=== PATIENT | male | born 1955 | race African-American/Black ===

== ENCOUNTER 2019-12-04 20:56 | Inpatient (IN) | payer MEDICARE, MEDICAID ==
[~2019-12-04] VITALS: Ht 182.9 cm; Wt 102.1 kg
[~2019-12-04 20:56] MED LIST: AMLO10TA80 MT; AZIT500T8 MT; CITR30SO2 PO; COR6 PO; FERR325T23 MT; FURO-152 MT; GABA-531 MT; INSU100I24 SQ; SITA1TAB6 MT
[2019-12-05] MEDS ORDERED: VANCOMYCIN 1 G PREMIX 200 ML IV ONE (01:00)
[2019-12-05] MEDS ORDERED: PIPERACILLIN/TAZ 3.375G PREMIX 50 ML IV ONE (01:00)
[2019-12-05 02:03] LABS: CHLORIDE 108 mEq/L (98-107)
[2019-12-05 02:06] LABS: BASOPHILS % 0.8 % (0.0-2.0); EOSINOPHILS % 0.1 % (0.0-5.0); HEMATOCRIT. 30.4 % (42.0-52.0); HEMOGLOBIN. 9.5 g/dL (14.0-18.0); MEAN CORPUSCULAR HEMOGLOBIN 23.3 pg (28.0-32.0); MEAN CORPUSCULAR VOLUME 74.3 fL (80.0-94.0); MEAN PLATELET VOLUME 8.7 fl (7.4-10.4); MONOCYTES % 4.9 % (2.0-8.0); NEUTROPHILS % 83.2 % (40.0-76.0); PLATELET 413 x1000/uL (130-400); RED BLOOD CELL COUNT 4.09 mill/uL (4.7-6.1); RED CELL DISTRIBUTION WIDTH 38.7 % (11.6-14.6)
[2019-12-05 04:50] LABS: PLATELET ESTIMATE SLIGHTLY INCREASED
[2019-12-05] MEDS ORDERED: ACETAMINOPHEN 325MG TABLET PO PRN (11:45)
[2019-12-05] MEDS ORDERED: GUAIFENESIN 200MG/10ML SUGAR FREE UDC PO PRN (11:45)
[2019-12-05] MEDS ORDERED: ENOXAPARIN 30MG/0.3ML SYR SUBCUT SCH (11:45)
[2019-12-05] MEDS ORDERED: PIPERACILLIN/TAZ 3.375G PREMIX 50 ML IV SCH (11:45)
[2019-12-05] MEDS ORDERED: ONDANSETRON HCL 4MG/2ML INJ IV PRN (11:45)
[2019-12-05] MEDS ORDERED: PIPERACILLIN/TAZOBACTAM 3.375 G in DEXT 5% WATER 100 ML IV SCH (13:00)
[2019-12-05 13:30] VITALS: BP 165/103
[2019-12-05 13:37] VITALS: BP 165/103
[2019-12-05] MEDS: ENOXAPARIN 40MG/0.4ML SYR SUBCUT SCH (13:55)
[2019-12-05] MEDS: CLONIDINE 0.1MG TABLET PO PRN (13:55)
[2019-12-05 15:57] LABS: CLARITY URINE CLEAR (CLEAR); COLOR URINE YELLOW (YELLOW); KETONES URINE NEGATIVE (NEGATIVE); LEUKOCYTE ESTERASE URINE NEGATIVE (NEGATIVE); NITRITE URINE NEGATIVE (NEGATIVE); OCCULT BLOOD URINE NEGATIVE (NEGATIVE); PROTEIN URINE 2+ (NEGATIVE); SPECIFIC GRAVITY URINE 1.012 (1.005-1.030)
[2019-12-05 16:00] VITALS: BP 137/99
[2019-12-05] MEDS: PIPERACILLIN/TAZOBACTAM 3.375 G in DEXT 5% WATER 100 ML IV SCH ×2 (16:12→16:13)
[2019-12-05] MEDS: FUROSEMIDE 40MG/4ML VIAL IVP SCH (16:15)
[2019-12-05 16:52] LABS: CREATINE KINASE MB FRACTION 2.4 ng/mL (0.5-3.6)
[2019-12-05] MEDS ORDERED: VANCOMYCIN 1 G PREMIX 200 ML IV NR (18:00)
[2019-12-05 20:00] VITALS: BP 132/83
[2019-12-06] VITALS: BP 143/103
[2019-12-06] MEDS: PIPERACILLIN/TAZOBACTAM 3.375 G in DEXT 5% WATER 100 ML IV SCH ×4 (00:01→11:53)
[2019-12-06] MEDS: CLONIDINE 0.1MG TABLET PO PRN (00:07)
[2019-12-06 00:09] LABS: CREATINE KINASE MB FRACTION 2.4 ng/mL (0.5-3.6)
[2019-12-06] MEDS ORDERED: VANCOMYCIN 1 G PREMIX 200 ML IV SCH ×2 (01:00)
[2019-12-06 04:00] VITALS: BP 134/88
[2019-12-06 07:43] LABS: BASOPHILS % 1.7 % (0.0-2.0); EOSINOPHILS % 2.3 % (0.0-5.0); HEMATOCRIT. 30.9 % (42.0-52.0); HEMOGLOBIN. 9.7 g/dL (14.0-18.0); LYMPHOCYTES % 22.9 % (20.0-50.0); MEAN CORPUSCULAR HEMOGLOBIN 23.3 pg (28.0-32.0); MEAN CORPUSCULAR VOLUME 74.6 fL (80.0-94.0); MEAN PLATELET VOLUME 8.6 fl (7.4-10.4); MONOCYTES % 9.2 % (2.0-8.0); NEUTROPHILS % 63.9 % (40.0-76.0); PLATELET 417 x1000/uL (130-400); RED BLOOD CELL COUNT 4.15 mill/uL (4.7-6.1); RED CELL DISTRIBUTION WIDTH 39.2 % (11.6-14.6)
[2019-12-06 08:32] VITALS: BP 143/87
[2019-12-06] MEDS: FUROSEMIDE 40MG/4ML VIAL IVP SCH ×2 (08:38→17:12)
[2019-12-06 11:37] VITALS: BP 141/92
[2019-12-06] MEDS: ENOXAPARIN 40MG/0.4ML SYR SUBCUT SCH (12:04)
[2019-12-06] MEDS ORDERED: MAGNESIUM 2 G PREMIX 50 ML IV SCH (15:00)
[2019-12-06] MEDS: CEFEPIME 1,000 MG in DEXTROSE 5% WATER 50 ML IV SCH (15:29)
[2019-12-06 16:33] VITALS: BP 135/91
[2019-12-06] MEDS ORDERED: VANCOMYCIN 1 G PREMIX 200 ML IV NR (18:00)
[2019-12-06 20:00] VITALS: BP 137/95
[2019-12-07] VITALS: BP 142/89
[2019-12-07 04:00] VITALS: BP 158/98
[2019-12-07] MEDS: CEFEPIME 1,000 MG in DEXTROSE 5% WATER 50 ML IV SCH (06:08)
[2019-12-07] MEDS: FUROSEMIDE 40MG/4ML VIAL IVP SCH (06:49)
[2019-12-07 08:00] VITALS: BP 145/88
[2019-12-07 12:00] VITALS: BP 129/83
[2019-12-07] MEDS: ENOXAPARIN 40MG/0.4ML SYR SUBCUT SCH (13:02)
[2019-12-07 13:10] LABS: ANTI-NUCLEAR ANTIBODIES DIRECT Negative (Negative)
[2019-12-07 16:00] VITALS: BP 139/91
[2019-12-07 16:18] VITALS: BP 139/91
[2019-12-08] MEDS ORDERED: FUROSEMIDE 40MG/4ML VIAL IVP SCH (09:00)
== END 2019-12-07 16:45 | disposition home or self-care (01) | DRG 291 ==
LOC: ER 20:56 → 7WST 12-05 01:00 → EDBEDREQTM 12-05 01:08 → EDBEDREQDT 12-05 01:08 → EDBEDREQ 12-05 01:08 → ENRESERV 12-05 11:43 → 6WST 12-05 23:45
PROVIDERS: ADMIT Internal Medicine; ATTEND Internal Medicine
DX: I13.0 Hypertensive heart and chronic kidney disease with heart failure and stage 1 through stage 4 chronic kidney disease, or unspecified chronic kidney disease (principal); J96.00 Acute respiratory failure, unspecified whether with hypoxia or hypercapnia; N17.0 Acute kidney failure with tubular necrosis; I31.3 Pericardial effusion (noninflammatory); I50.40 Unspecified combined systolic (congestive) and diastolic (congestive) heart failure; N18.9 Chronic kidney disease, unspecified; E87.5 Hyperkalemia; I27.81 Cor pulmonale (chronic); D50.9 Iron deficiency anemia, unspecified; Z20.828 Contact with and (suspected) exposure to other viral communicable diseases; E11.22 Type 2 diabetes mellitus with diabetic chronic kidney disease; E11.51 Type 2 diabetes mellitus with diabetic peripheral angiopathy without gangrene; I08.1 Rheumatic disorders of both mitral and tricuspid valves; E11.65 Type 2 diabetes mellitus with hyperglycemia; E88.09 Other disorders of plasma-protein metabolism, not elsewhere classified; I27.29 Other secondary pulmonary hypertension; Z89.429 Acquired absence of other toe(s), unspecified side; Z79.899 Other long term (current) drug therapy; J44.9 Chronic obstructive pulmonary disease, unspecified
CPT/HCPCS: 36415; 71045; 80048; 80053; 80202; 81003; 82550; 82553; 82728; 82962; 83540; 83550; 83605; 83735; 83880; 84484; 85025; 86038; 86160; 93005; 99285; J0692; J1650; J1940; J2543; J3370; J3475; J7060; U0003-CS

== ENCOUNTER 2020-02-12 18:06 | Inpatient (IN) | payer MEDICARE, MEDICAID ==
[~2020-02-12] VITALS: Ht 190.5 cm; Wt 87.1 kg
[2020-02-12 18:52] LABS: EOSINOPHILS % 2.8 % (0.0-5.0); HEMATOCRIT. 44.1 % (42.0-52.0); HEMOGLOBIN. 14.5 g/dL (14.0-18.0); LYMPHOCYTES % 17.7 % (20.0-50.0); MEAN CORPUSCULAR HEMOGLOBIN 29.6 pg (28.0-32.0); MEAN CORPUSCULAR VOLUME 90.2 fL (80.0-94.0); MEAN PLATELET VOLUME 8.4 fl (7.4-10.4); MONOCYTES % 8.6 % (2.0-8.0); NEUTROPHILS % 69.9 % (40.0-76.0); PLATELET 227 x1000/uL (130-400); RED BLOOD CELL COUNT 4.89 mill/uL (4.7-6.1); RED CELL DISTRIBUTION WIDTH 16.7 % (11.6-14.6)
[2020-02-12 18:58] LABS: CHLORIDE 110 mEq/L (98-107)
[2020-02-12 19:03] LABS: ETHANOL BLOOD < 10 mg/dL
[2020-02-12 19:06] LABS: LDL CHOLESTEROL 108 mg/dL (5-100)
[2020-02-12 19:08] LABS: INR 1.1; PROTHROMBIN TIME 11.6 sec (9.6-11.0)
[2020-02-12] MEDS ORDERED: ASPIRIN 325MG EC TABLET PO ONE (19:30)
[2020-02-12 22:31] VITALS: BP 149/116
[2020-02-12] MEDS ORDERED: ONDANSETRON HCL 4MG/2ML INJ IV PRN (22:45)
[2020-02-12] MEDS ORDERED: LORAZEPAM 2MG/ML CPJ IV PRN (22:45)
[2020-02-12] MEDS ORDERED: MAGNESIUM/ALUMINUM HYDROXIDE/SIMETHICONE 30ML UDC PO PRN (22:45)
[2020-02-12] MEDS ORDERED: DIPHENHYDRAMINE 50MG/ML VIAL IV PRN (22:45)
[2020-02-12] MEDS ORDERED: MORPHINE SULFATE 2 MG/ML CPJ (NOT FOR IM USE) IV PRN (22:45)
[2020-02-12] MEDS ORDERED: NA PHOS,M-B/NA PHOS,DI-BA ENEMA 118ML PR PRN (22:45)
[2020-02-12] MEDS ORDERED: GUAIFENESIN 200MG/10ML SUGAR FREE UDC PO PRN (22:45)
[2020-02-12] MEDS ORDERED: ACETAMINOPHEN 325MG TABLET PO PRN (22:45)
[2020-02-12] MEDS ORDERED: HYDR25TA MT (22:50)
[2020-02-12] MEDS ORDERED: DOCU-150 MT (22:52)
[2020-02-12] MEDS ORDERED: TEMA30CA MT (22:58)
[2020-02-12] MEDS ORDERED: AMIT25TA9 MT (22:59)
[2020-02-12] MEDS ORDERED: NAPR-681 MT (23:00)
[2020-02-12] MEDS ORDERED: DEXTROSE 50% WATER 50ML SYRINGE IV PRN (23:00)
[2020-02-13] VITALS (12 sets, daily range): BP systolic 108–160; BP diastolic 60–99
[2020-02-13] MEDS: CLONIDINE 0.1MG TABLET PO PRN (00:19)
[2020-02-13] MEDS: SODIUM CHLORIDE 0.45% 1,000 ML IV SCH ×2 (01:54→17:40)
[2020-02-13 07:09] LABS: EOSINOPHILS % 4.1 % (0.0-5.0); MEAN CORPUSCULAR HEMOGLOBIN 29.6 pg (28.0-32.0); MEAN CORPUSCULAR VOLUME 90.4 fL (80.0-94.0); MEAN PLATELET VOLUME 9.1 fl (7.4-10.4); MONOCYTES % 11.1 % (2.0-8.0); NEUTROPHILS % 51.8 % (40.0-76.0); PLATELET 227 x1000/uL (130-400); RED BLOOD CELL COUNT 4.75 mill/uL (4.7-6.1); RED CELL DISTRIBUTION WIDTH 16.3 % (11.6-14.6)
[2020-02-13 07:23] LABS: CHLORIDE 107 mEq/L (98-107)
[2020-02-13 07:35] LABS: LDL CHOLESTEROL 111 mg/dL (5-100)
[2020-02-13 07:36] LABS: HDL CHOLESTEROL 42 mg/dL (40-59)
[2020-02-13 07:38] LABS: T4 FREE 1.05 ng/dL (0.76-1.46)
[2020-02-13] MEDS: INSULIN LISPRO 100 UNITS/ML SUBCUT SCH ×4 (08:00→21:00)
[2020-02-13] MEDS: BLOOD SUGAR DIAGNOSTIC STRIP TEST SCH ×4 (08:19→21:39)
[2020-02-13] MEDS: METOPROLOL TARTRATE 25MG TABLET PO SCH ×2 (08:45→21:32)
[2020-02-13] MEDS: ASPIRIN 81MG EC TABLET PO SCH (08:46)
[2020-02-13] MEDS: LISINOPRIL 10MG TABLET PO SCH (08:47)
[2020-02-13] MEDS: AMLODIPINE 10MG TABLET PO SCH (08:47)
[2020-02-13] MEDS: ENOXAPARIN 30MG/0.3ML SYR SUBCUT SCH (08:48)
[2020-02-13 09:31] LABS: T4 FREE 1.12 ng/dL (0.76-1.46)
[2020-02-13] MEDS: CLOPIDOGREL 75MG TABLET PO SCH (10:06)
[2020-02-13 16:12] LABS: CREATINE KINASE 369 IU/L (39-308); CREATINE KINASE MB FRACTION 4.2 ng/mL (0.5-3.6)
[2020-02-13] MEDS: ATORVASTATIN CALCIUM 40MG TABLET PO SCH (21:32)
[2020-02-14] VITALS (9 sets, daily range): BP systolic 127–167; BP diastolic 72–100
[2020-02-14 00:06] LABS: CREATINE KINASE MB FRACTION 4.8 ng/mL (0.5-3.6)
[2020-02-14] MEDS: SODIUM CHLORIDE 0.45% 1,000 ML IV SCH (00:52)
[2020-02-14] MEDS: DOCUSATE SODIUM 100MG CAPSULE PO PRN (02:28)
[2020-02-14 06:43] LABS: BASOPHILS % 1.2 % (0.0-2.0); EOSINOPHILS % 3.6 % (0.0-5.0); HEMATOCRIT. 46.8 % (42.0-52.0); HEMOGLOBIN. 15.5 g/dL (14.0-18.0); MEAN CORPUSCULAR HEMOGLOBIN 29.7 pg (28.0-32.0); MEAN CORPUSCULAR VOLUME 89.5 fL (80.0-94.0); MONOCYTES % 12.3 % (2.0-8.0); NEUTROPHILS % 52.9 % (40.0-76.0); PLATELET 234 x1000/uL (130-400); RED BLOOD CELL COUNT 5.23 mill/uL (4.7-6.1); RED CELL DISTRIBUTION WIDTH 16.8 % (11.6-14.6)
[2020-02-14 06:50] LABS: CREATINE KINASE MB FRACTION 4.9 ng/mL (0.5-3.6)
[2020-02-14] MEDS: INSULIN LISPRO 100 UNITS/ML SUBCUT SCH ×4 (07:44→21:45)
[2020-02-14] MEDS: BLOOD SUGAR DIAGNOSTIC STRIP TEST SCH ×4 (07:44→21:00)
[2020-02-14] MEDS: HYDROCODONE/ACETAMINOPHEN 5/325MG TABLET PO PRN (09:35)
[2020-02-14] MEDS: CLOPIDOGREL 75MG TABLET PO SCH (09:35)
[2020-02-14] MEDS: ASPIRIN 81MG EC TABLET PO SCH (09:35)
[2020-02-14] MEDS: LISINOPRIL 10MG TABLET PO SCH (09:35)
[2020-02-14] MEDS: METOPROLOL TARTRATE 25MG TABLET PO SCH ×2 (09:35→21:44)
[2020-02-14] MEDS: AMLODIPINE 10MG TABLET PO SCH (09:37)
[2020-02-14] MEDS: ENOXAPARIN 30MG/0.3ML SYR SUBCUT SCH (09:38)
[2020-02-14] MEDS: ATORVASTATIN CALCIUM 40MG TABLET PO SCH (21:44)
[2020-02-15] VITALS (12 sets, daily range): BP systolic 129–177; BP diastolic 64–112
[2020-02-15] MEDS: ENOXAPARIN 40MG/0.4ML SYR SUBCUT SCH (08:17)
[2020-02-15] MEDS: METOPROLOL TARTRATE 25MG TABLET PO SCH (08:17)
[2020-02-15] MEDS: CLOPIDOGREL 75MG TABLET PO SCH (08:17)
[2020-02-15] MEDS: LISINOPRIL 10MG TABLET PO SCH (08:18)
[2020-02-15] MEDS: AMLODIPINE 10MG TABLET PO SCH (08:18)
[2020-02-15] MEDS: ASPIRIN 81MG EC TABLET PO SCH (08:18)
[2020-02-15] MEDS: HYDROCODONE/ACETAMINOPHEN 5/325MG TABLET PO PRN (08:19)
[2020-02-15] MEDS: INSULIN LISPRO 100 UNITS/ML SUBCUT SCH ×4 (08:22→20:38)
[2020-02-15] MEDS: BLOOD SUGAR DIAGNOSTIC STRIP TEST SCH ×4 (08:25→20:37)
[2020-02-15 09:07] LABS: EOSINOPHILS % 4.1 % (0.0-5.0); HEMATOCRIT. 45.8 % (42.0-52.0); HEMOGLOBIN. 15.2 g/dL (14.0-18.0); LYMPHOCYTES % 23.7 % (20.0-50.0); MEAN CORPUSCULAR HEMOGLOBIN 29.7 pg (28.0-32.0); MEAN CORPUSCULAR VOLUME 89.4 fL (80.0-94.0); MEAN PLATELET VOLUME 8.6 fl (7.4-10.4); MONOCYTES % 10.9 % (2.0-8.0); NEUTROPHILS % 60.3 % (40.0-76.0); PLATELET 222 x1000/uL (130-400); RED BLOOD CELL COUNT 5.13 mill/uL (4.7-6.1); RED CELL DISTRIBUTION WIDTH 16.3 % (11.6-14.6)
[2020-02-15] MEDS: SODIUM CHLORIDE 0.45% 1,000 ML IV SCH ×2 (10:34→20:32)
[2020-02-15] MEDS: CLONIDINE 0.1MG TABLET PO PRN (14:48)
[2020-02-15] MEDS: ATORVASTATIN CALCIUM 40MG TABLET PO SCH (20:30)
[2020-02-15] MEDS: METOPROLOL TARTRATE 50MG TABLET PO SCH (20:31)
[2020-02-15] MEDS ORDERED: ATORVASTATIN CALCIUM 20MG TABLET PO SCH (21:00)
[2020-02-16] VITALS (12 sets, daily range): BP systolic 130–156; BP diastolic 62–91
[2020-02-16 06:34] LABS: EOSINOPHILS % 3.6 % (0.0-5.0); HEMATOCRIT. 46.2 % (42.0-52.0); HEMOGLOBIN. 15.1 g/dL (14.0-18.0); LYMPHOCYTES % 29.7 % (20.0-50.0); MEAN CORPUSCULAR HEMOGLOBIN 29.7 pg (28.0-32.0); MEAN CORPUSCULAR VOLUME 90.7 fL (80.0-94.0); MEAN PLATELET VOLUME 9.2 fl (7.4-10.4); MONOCYTES % 12.8 % (2.0-8.0); NEUTROPHILS % 52.9 % (40.0-76.0); PLATELET 210 x1000/uL (130-400); RED BLOOD CELL COUNT 5.09 mill/uL (4.7-6.1); RED CELL DISTRIBUTION WIDTH 16.3 % (11.6-14.6)
[2020-02-16] MEDS: BLOOD SUGAR DIAGNOSTIC STRIP TEST SCH ×4 (07:30→20:54)
[2020-02-16] MEDS: INSULIN LISPRO 100 UNITS/ML SUBCUT SCH ×4 (08:00→20:53)
[2020-02-16] MEDS: METOPROLOL TARTRATE 50MG TABLET PO SCH ×2 (09:00→20:52)
[2020-02-16] MEDS: ASPIRIN 81MG EC TABLET PO SCH (11:15)
[2020-02-16] MEDS: AMLODIPINE 10MG TABLET PO SCH (11:15)
[2020-02-16] MEDS: ENOXAPARIN 40MG/0.4ML SYR SUBCUT SCH (11:16)
[2020-02-16] MEDS: LISINOPRIL 20MG TABLET PO SCH (11:38)
[2020-02-16] MEDS: CLOPIDOGREL 75MG TABLET PO SCH (11:38)
[2020-02-16] MEDS: ATORVASTATIN CALCIUM 40MG TABLET PO SCH (20:52)
[2020-02-16] MEDS: DOCUSATE SODIUM 100MG CAPSULE PO PRN (20:53)
[2020-02-17] MEDS: SODIUM CHLORIDE 0.45% 1,000 ML IV SCH (02:38)
[2020-02-17 03:47] VITALS: BP 142/100
[2020-02-17 06:10] LABS: BASOPHILS % 0.9 % (0.0-2.0); EOSINOPHILS % 3.8 % (0.0-5.0); HEMATOCRIT. 46.3 % (42.0-52.0); HEMOGLOBIN. 15.1 g/dL (14.0-18.0); LYMPHOCYTES % 27.8 % (20.0-50.0); MEAN CORPUSCULAR HEMOGLOBIN 29.4 pg (28.0-32.0); MEAN CORPUSCULAR VOLUME 90.5 fL (80.0-94.0); MEAN PLATELET VOLUME 9.2 fl (7.4-10.4); MONOCYTES % 13.3 % (2.0-8.0); NEUTROPHILS % 54.2 % (40.0-76.0); PLATELET 208 x1000/uL (130-400); RED BLOOD CELL COUNT 5.12 mill/uL (4.7-6.1); RED CELL DISTRIBUTION WIDTH 16.1 % (11.6-14.6)
[2020-02-17] MEDS: BLOOD SUGAR DIAGNOSTIC STRIP TEST SCH ×2 (06:52→12:51)
[2020-02-17] MEDS: INSULIN LISPRO 100 UNITS/ML SUBCUT SCH ×2 (07:01→13:31)
[2020-02-17 08:13] VITALS: BP 169/86
[2020-02-17] MEDS: METOPROLOL TARTRATE 50MG TABLET PO SCH (08:13)
[2020-02-17] MEDS: ASPIRIN 81MG EC TABLET PO SCH (08:13)
[2020-02-17] MEDS: AMLODIPINE 10MG TABLET PO SCH (08:14)
[2020-02-17] MEDS: ENOXAPARIN 40MG/0.4ML SYR SUBCUT SCH (08:14)
[2020-02-17] MEDS: CLOPIDOGREL 75MG TABLET PO SCH (08:14)
[2020-02-17] MEDS: LISINOPRIL 20MG TABLET PO SCH (08:15)
[2020-02-17 10:00] VITALS: BP 127/79
[2020-02-17 12:00] VITALS: BP 140/77
[2020-02-17] MEDS: CLONIDINE 0.1MG TABLET PO PRN (13:31)
[2020-02-17 13:50] VITALS: BP 112/61
[2020-02-17 14:07] VITALS: BP 112/61
== END 2020-02-17 15:25 | disposition home health service (06) | DRG 64 ==
LOC: ER 18:06 → 5EST 20:27 → EDBEDREQTM 20:30 → EDBEDREQ 20:30 → ENRESERV 21:11 → 5EST 02-13 00:05
PROVIDERS: ADMIT Internal Medicine; ATTEND Internal Medicine
PROC: 4A00X4Z Measurement of Central Nervous Electrical Activity, External Approach (ICD-10-PCS; principal; 2020-02-16)
DX: I63.9 Cerebral infarction, unspecified (principal); G93.41 Metabolic encephalopathy; N17.0 Acute kidney failure with tubular necrosis; E46 Unspecified protein-calorie malnutrition; G81.94 Hemiplegia, unspecified affecting left nondominant side; I42.9 Cardiomyopathy, unspecified; I13.0 Hypertensive heart and chronic kidney disease with heart failure and stage 1 through stage 4 chronic kidney disease, or unspecified chronic kidney disease; I50.20 Unspecified systolic (congestive) heart failure; N18.9 Chronic kidney disease, unspecified; D64.9 Anemia, unspecified; R29.810 Facial weakness; R47.81 Slurred speech; F17.200 Nicotine dependence, unspecified, uncomplicated; I25.10 Atherosclerotic heart disease of native coronary artery without angina pectoris; E78.5 Hyperlipidemia, unspecified; E11.22 Type 2 diabetes mellitus with diabetic chronic kidney disease; Z79.899 Other long term (current) drug therapy; Z89.512 Acquired absence of left leg below knee; Z68.24 Body mass index [BMI] 24.0-24.9, adult; Z86.73 Personal history of transient ischemic attack (TIA), and cerebral infarction without residual deficits
CPT/HCPCS: 36415; 70551; 71045; 76770; 80048; 80053; 80061; 80320; 82550; 82553; 82962; 83036; 83721; 83880; 84439; 84443; 84484; 85025; 85379; 93005; 93306; 93880; 95816; 96360; 97116; 97162; 97530; 97535; 99291; J1650; J1815; J2060; G0480

== ENCOUNTER 2021-08-20 15:20 | Inpatient (IN) | payer OTHER, MEDICAID ==
[~2021-08-20] VITALS: Ht 193 cm; Wt 82.6 kg
[~2021-08-20 15:20] MED LIST changes: +AMIT25TA9 MT; -AZIT500T8 MT; -CITR30SO2 PO; +DOCU-150 MT; -GABA-531 MT; +GABA-532 MT; +HYDR25TA MT; +NAPR-681 MT; +TEMA30CA MT
[2021-08-20] MEDS ORDERED: VANCOMYCIN 1G PREMIX 200 ML IV ONE (17:00)
[2021-08-20] MEDS ORDERED: PIPERACILLIN/TAZ 3.375G PREMIX 50 ML IV ONE (17:00)
[2021-08-20 17:16] LABS: HEMATOCRIT. 34.6 % (42.0-52.0); HEMOGLOBIN. 11.3 g/dL (14.0-18.0); MEAN CORPUSCULAR HEMOGLOBIN 30.2 pg (28.0-32.0); MEAN CORPUSCULAR VOLUME 92.2 fL (80.0-94.0); MEAN PLATELET VOLUME 8.8 fl (7.4-10.4); PLATELET 212 x1000/uL (130-400); RED BLOOD CELL COUNT 3.76 mill/uL (4.7-6.1); RED CELL DISTRIBUTION WIDTH 15.8 % (11.6-14.6)
[2021-08-20 17:23] LABS: CHLORIDE 108 mEq/L (98-107)
[2021-08-20 17:50] LABS: PLATELET ESTIMATE NORMAL
[2021-08-20] MEDS ORDERED: MORPHINE SULFATE 4 MG/ML CPJ (NOT FOR IM USE) IV STA (20:43)
[2021-08-20] MEDS ORDERED: ONDANSETRON HCL 4MG/2ML INJ IV STA (20:43)
[2021-08-21] VITALS (7 sets, daily range): BP systolic 122–138; BP diastolic 72–93
[2021-08-21] MEDS ORDERED: CEFTRIAXONE 1 G PREMIX 50 ML IV SCH (08:00)
[2021-08-21] MEDS ORDERED: ONDANSETRON HCL 4MG/2ML INJ IV PRN (08:00)
[2021-08-21] MEDS ORDERED: HYDROCODONE/ACETAMINOPHEN 5/325MG TABLET PO PRN (08:00)
[2021-08-21] MEDS ORDERED: NALOXONE HCL 0.4MG/ML VIAL IV PRN (08:15)
[2021-08-21] MEDS ORDERED: SODIUM POLYSTYRENE SULFONATE 15 G/60 ML BOT PO NR (08:30)
[2021-08-21] MEDS: CEFTRIAXONE 1,000 MG in DEXTROSE 5% WATER 50 ML IV SCH (09:34)
[2021-08-21] MEDS: SODIUM CHLORIDE 0.45% 1,000 ML IV SCH (09:35)
[2021-08-21] MEDS ORDERED: VANCOMYCIN 1500MG in DEXTROSE 5% WATER 250ML IV NR (10:00)
[2021-08-21] MEDS ORDERED: VANCOMYCIN 750 MG in DEXT 5% WATER 250 ML IV NR (11:00)
[2021-08-21] MEDS ORDERED: ZOLPIDEM TARTRATE 5MG TABLET PO PRN (20:15)
[2021-08-22] VITALS: BP 132/84
[2021-08-22 04:00] VITALS: BP 144/90
[2021-08-22] MEDS: SODIUM CHLORIDE 0.45% 1,000 ML IV SCH (04:30)
[2021-08-22 06:24] LABS: HEMATOCRIT. 32.6 % (42.0-52.0); HEMOGLOBIN. 10.8 g/dL (14.0-18.0); MEAN CORPUSCULAR HEMOGLOBIN 30.4 pg (28.0-32.0); MEAN CORPUSCULAR VOLUME 91.7 fL (80.0-94.0); MEAN PLATELET VOLUME 8.8 fl (7.4-10.4); PLATELET 235 x1000/uL (130-400); RED BLOOD CELL COUNT 3.56 mill/uL (4.7-6.1); RED CELL DISTRIBUTION WIDTH 15.9 % (11.6-14.6)
[2021-08-22 08:00] VITALS: BP 140/85
[2021-08-22] MEDS: CEFTRIAXONE 1,000 MG in DEXTROSE 5% WATER 50 ML IV SCH (09:25)
[2021-08-22 09:31] LABS: PLATELET ESTIMATE NORMAL
[2021-08-22 10:34] LABS: CREATINE KINASE 269 IU/L (39-308)
[2021-08-22 12:00] VITALS: BP 145/80
[2021-08-22] MEDS ORDERED: VANCOMYCIN 1GM PMX (XELLIA) 200 ML IV SCH (12:00)
[2021-08-22 16:00] VITALS: BP 143/92
[2021-08-22 20:00] VITALS: BP 134/74
[2021-08-23] VITALS: BP 138/86
[2021-08-23 04:00] VITALS: BP 143/87
[2021-08-23 07:04] LABS: HEMATOCRIT. 30.5 % (42.0-52.0); HEMOGLOBIN. 10.4 g/dL (14.0-18.0); MEAN CORPUSCULAR HEMOGLOBIN 30.8 pg (28.0-32.0); MEAN CORPUSCULAR VOLUME 90.7 fL (80.0-94.0); MEAN PLATELET VOLUME 8.9 fl (7.4-10.4); PLATELET 254 x1000/uL (130-400); RED BLOOD CELL COUNT 3.36 mill/uL (4.7-6.1); RED CELL DISTRIBUTION WIDTH 15.5 % (11.6-14.6)
[2021-08-23 08:00] VITALS: BP 144/80
[2021-08-23] MEDS: SODIUM CHLORIDE 0.45% 1,000 ML IV SCH (08:44)
[2021-08-23 09:52] LABS: PLATELET ESTIMATE NORMAL
[2021-08-23] MEDS: CEFTRIAXONE 1,000 MG in DEXTROSE 5% WATER 50 ML IV SCH (09:55)
[2021-08-23 12:00] VITALS: BP 150/92
[2021-08-23 16:00] VITALS: BP 160/92
[2021-08-23 20:00] VITALS: BP 146/85
[2021-08-24] VITALS: BP 155/101
[2021-08-24 04:00] VITALS: BP 158/65
[2021-08-24] MEDS: SODIUM CHLORIDE 0.45% 1,000 ML IV SCH (05:25)
[2021-08-24 08:00] VITALS: BP 154/101
[2021-08-24 08:13] LABS: CHLORIDE 109 mEq/L (98-107)
[2021-08-24 08:24] LABS: HEMATOCRIT. 33.8 % (42.0-52.0); HEMOGLOBIN. 11.3 g/dL (14.0-18.0); MEAN CORPUSCULAR HEMOGLOBIN 30.8 pg (28.0-32.0); MEAN CORPUSCULAR VOLUME 91.8 fL (80.0-94.0); MEAN PLATELET VOLUME 8.6 fl (7.4-10.4); PLATELET 295 x1000/uL (130-400); RED BLOOD CELL COUNT 3.68 mill/uL (4.7-6.1); RED CELL DISTRIBUTION WIDTH 15.7 % (11.6-14.6)
[2021-08-24] MEDS: CEFTRIAXONE 1,000 MG in DEXTROSE 5% WATER 50 ML IV SCH (09:40)
[2021-08-24 10:25] LABS: PLATELET ESTIMATE NORMAL
[2021-08-24 12:00] VITALS: BP 159/94
[2021-08-24 16:00] VITALS: BP 145/106
[2021-08-24 20:00] VITALS: BP_SYST 120; BP_SYST 155; BP_DIAS 75; BP_DIAS 86
[2021-08-25] VITALS: BP 155/96
[2021-08-25] MEDS: SODIUM CHLORIDE 0.45% 1,000 ML IV SCH (00:49)
[2021-08-25 04:00] VITALS: BP 164/97
[2021-08-25 08:00] VITALS: BP 163/113
[2021-08-25 08:36] LABS: HEMATOCRIT. 33.8 % (42.0-52.0); HEMOGLOBIN. 11.4 g/dL (14.0-18.0); MEAN CORPUSCULAR HEMOGLOBIN 30.7 pg (28.0-32.0); MEAN CORPUSCULAR VOLUME 91.6 fL (80.0-94.0); PLATELET 325 x1000/uL (130-400); RED BLOOD CELL COUNT 3.69 mill/uL (4.7-6.1); RED CELL DISTRIBUTION WIDTH 15.4 % (11.6-14.6)
[2021-08-25] MEDS: CEFTRIAXONE 1,000 MG in DEXTROSE 5% WATER 50 ML IV SCH (10:03)
[2021-08-25 12:00] VITALS: BP 162/110
[2021-08-25] MEDS ORDERED: DEXTROSE 50% WATER 50ML SYRINGE IV PRN (12:00)
[2021-08-25] MEDS: BLOOD SUGAR DIAGNOSTIC STRIP TEST SCH ×3 (12:35→20:00)
[2021-08-25] MEDS: AMLODIPINE 10MG TABLET PO SCH (13:00)
[2021-08-25] MEDS: FUROSEMIDE 20MG TABLET PO SCH (13:01)
[2021-08-25] MEDS: INSULIN LISPRO 100 UNITS/ML SUBCUT SCH ×3 (13:05→22:17)
[2021-08-25 14:11] LABS: PLATELET ESTIMATE NORMAL
[2021-08-25 16:00] VITALS: BP 157/109
[2021-08-25] MEDS: CARVEDILOL 6.25 MG TABLET PO SCH (17:00)
[2021-08-25] MEDS: GABAPENTIN 300MG CAPSULE PO SCH (17:00)
[2021-08-25 20:00] VITALS: BP 130/90
[2021-08-25] MEDS: AMITRIPTYLINE 25MG TABLET PO SCH (22:15)
[2021-08-25] MEDS: INSULIN GLARGINE 100 UNITS/ML SUBCUT SCH (22:16)
[2021-08-26] VITALS: BP 145/95
[2021-08-26] MEDS: SODIUM CHLORIDE 0.45% 1,000 ML IV SCH ×2 (00:21→07:53)
[2021-08-26 05:00] VITALS: BP 149/97
[2021-08-26] MEDS: BLOOD SUGAR DIAGNOSTIC STRIP TEST SCH ×4 (05:38→21:09)
[2021-08-26] MEDS: INSULIN LISPRO 100 UNITS/ML SUBCUT SCH ×4 (05:53→21:36)
[2021-08-26 06:04] LABS: HEMATOCRIT. 32.1 % (42.0-52.0); HEMOGLOBIN. 10.7 g/dL (14.0-18.0); MEAN CORPUSCULAR HEMOGLOBIN 30.2 pg (28.0-32.0); MEAN CORPUSCULAR VOLUME 90.5 fL (80.0-94.0); MEAN PLATELET VOLUME 8.9 fl (7.4-10.4); PLATELET 317 x1000/uL (130-400); RED BLOOD CELL COUNT 3.55 mill/uL (4.7-6.1); RED CELL DISTRIBUTION WIDTH 15.9 % (11.6-14.6)
[2021-08-26 07:54] VITALS: BP 135/86
[2021-08-26] MEDS: GABAPENTIN 300MG CAPSULE PO SCH ×2 (08:57→17:03)
[2021-08-26] MEDS: DOCUSATE SODIUM 100MG CAPSULE PO SCH (08:57)
[2021-08-26] MEDS: CARVEDILOL 6.25 MG TABLET PO SCH ×2 (08:57→17:03)
[2021-08-26] MEDS: FUROSEMIDE 20MG TABLET PO SCH (08:57)
[2021-08-26] MEDS: AMLODIPINE 10MG TABLET PO SCH (09:06)
[2021-08-26] MEDS: CEFTRIAXONE 1,000 MG in DEXTROSE 5% WATER 50 ML IV SCH (09:06)
[2021-08-26] MEDS: INSULIN GLARGINE 100 UNITS/ML SUBCUT SCH ×2 (10:43→21:37)
[2021-08-26 12:07] VITALS: BP 129/85
[2021-08-26 15:38] VITALS: BP 128/86
[2021-08-26 16:39] LABS: PLATELET ESTIMATE NORMAL
[2021-08-26 20:00] VITALS: BP 136/84
[2021-08-26] MEDS: AMITRIPTYLINE 25MG TABLET PO SCH (21:09)
[2021-08-27] VITALS: BP 127/85
[2021-08-27 04:00] VITALS: BP 145/78
[2021-08-27] MEDS: SODIUM CHLORIDE 0.45% 1,000 ML IV SCH ×2 (04:52→23:46)
[2021-08-27] MEDS: INSULIN LISPRO 100 UNITS/ML SUBCUT SCH ×4 (05:37→21:09)
[2021-08-27] MEDS: BLOOD SUGAR DIAGNOSTIC STRIP TEST SCH ×4 (05:37→21:10)
[2021-08-27 05:56] LABS: HEMATOCRIT. 35.5 % (42.0-52.0); HEMOGLOBIN. 11.8 g/dL (14.0-18.0); MEAN CORPUSCULAR HEMOGLOBIN 30.2 pg (28.0-32.0); MEAN CORPUSCULAR VOLUME 91.3 fL (80.0-94.0); MEAN PLATELET VOLUME 9.1 fl (7.4-10.4); PLATELET 364 x1000/uL (130-400); RED BLOOD CELL COUNT 3.89 mill/uL (4.7-6.1); RED CELL DISTRIBUTION WIDTH 15.9 % (11.6-14.6)
[2021-08-27 08:00] VITALS: BP 147/94
[2021-08-27] MEDS: AMLODIPINE 10MG TABLET PO SCH (08:56)
[2021-08-27] MEDS: FUROSEMIDE 20MG TABLET PO SCH (08:56)
[2021-08-27] MEDS: DOCUSATE SODIUM 100MG CAPSULE PO SCH (08:56)
[2021-08-27] MEDS: CARVEDILOL 6.25 MG TABLET PO SCH ×2 (08:56→17:22)
[2021-08-27] MEDS: CEFTRIAXONE 1,000 MG in DEXTROSE 5% WATER 50 ML IV SCH (08:56)
[2021-08-27] MEDS: GABAPENTIN 300MG CAPSULE PO SCH ×2 (08:56→17:22)
[2021-08-27] MEDS: INSULIN GLARGINE 100 UNITS/ML SUBCUT SCH ×2 (10:06→22:00)
[2021-08-27 12:00] VITALS: BP 142/91
[2021-08-27 16:00] VITALS: BP 132/86
[2021-08-27 20:00] VITALS: BP 133/75
[2021-08-27 20:04] LABS: PLATELET ESTIMATE NORMAL
[2021-08-27] MEDS: AMITRIPTYLINE 25MG TABLET PO SCH (21:10)
[2021-08-28] VITALS: BP 129/73
[2021-08-28 04:00] VITALS: BP 137/80
[2021-08-28] MEDS: BLOOD SUGAR DIAGNOSTIC STRIP TEST SCH ×4 (05:58→21:50)
[2021-08-28 06:27] LABS: HEMATOCRIT. 33.5 % (42.0-52.0); HEMOGLOBIN. 11.4 g/dL (14.0-18.0); MEAN CORPUSCULAR HEMOGLOBIN 30.5 pg (28.0-32.0); MEAN PLATELET VOLUME 8.7 fl (7.4-10.4); PLATELET 359 x1000/uL (130-400); RED BLOOD CELL COUNT 3.72 mill/uL (4.7-6.1); RED CELL DISTRIBUTION WIDTH 15.8 % (11.6-14.6)
[2021-08-28] MEDS: INSULIN LISPRO 100 UNITS/ML SUBCUT SCH ×4 (07:40→21:50)
[2021-08-28 08:00] VITALS: BP 145/85
[2021-08-28] MEDS: GABAPENTIN 300MG CAPSULE PO SCH ×2 (09:42→18:14)
[2021-08-28] MEDS: FUROSEMIDE 20MG TABLET PO SCH (09:42)
[2021-08-28] MEDS: DOCUSATE SODIUM 100MG CAPSULE PO SCH (09:42)
[2021-08-28] MEDS: CARVEDILOL 6.25 MG TABLET PO SCH ×2 (09:43→18:15)
[2021-08-28] MEDS: AMLODIPINE 10MG TABLET PO SCH (09:43)
[2021-08-28] MEDS: INSULIN GLARGINE 100 UNITS/ML SUBCUT SCH ×2 (10:37→21:49)
[2021-08-28] MEDS: CEFTRIAXONE 1,000 MG in DEXTROSE 5% WATER 50 ML IV SCH (10:44)
[2021-08-28 12:00] VITALS: BP 122/73
[2021-08-28 13:22] LABS: PLATELET ESTIMATE NORMAL
[2021-08-28 16:00] VITALS: BP 127/72
[2021-08-28 20:00] VITALS: BP 124/75
[2021-08-28] MEDS: SODIUM CHLORIDE 0.45% 1,000 ML IV SCH (21:48)
[2021-08-28] MEDS: AMITRIPTYLINE 25MG TABLET PO SCH (21:48)
[2021-08-29] VITALS: BP 121/73
[2021-08-29 04:00] VITALS: BP 119/70
[2021-08-29] MEDS: INSULIN LISPRO 100 UNITS/ML SUBCUT SCH ×2 (05:37→12:02)
[2021-08-29] MEDS: BLOOD SUGAR DIAGNOSTIC STRIP TEST SCH ×2 (05:37→11:22)
[2021-08-29 07:34] LABS: BASOPHILS % 0.4 % (0.0-2.0); EOSINOPHILS % 0.7 % (0.0-5.0); HEMATOCRIT. 34.2 % (42.0-52.0); HEMOGLOBIN. 11.2 g/dL (14.0-18.0); LYMPHOCYTES % 7.4 % (20.0-50.0); MEAN CORPUSCULAR HEMOGLOBIN 30.2 pg (28.0-32.0); MEAN PLATELET VOLUME 8.9 fl (7.4-10.4); NEUTROPHILS % 83.5 % (40.0-76.0); PLATELET 364 x1000/uL (130-400); RED BLOOD CELL COUNT 3.71 mill/uL (4.7-6.1); RED CELL DISTRIBUTION WIDTH 15.8 % (11.6-14.6)
[2021-08-29 08:00] VITALS: BP 130/87
[2021-08-29] MEDS: AMLODIPINE 10MG TABLET PO SCH (08:14)
[2021-08-29] MEDS: DOCUSATE SODIUM 100MG CAPSULE PO SCH (08:14)
[2021-08-29] MEDS: FUROSEMIDE 20MG TABLET PO SCH (08:14)
[2021-08-29] MEDS: CARVEDILOL 6.25 MG TABLET PO SCH (08:14)
[2021-08-29] MEDS: GABAPENTIN 300MG CAPSULE PO SCH (08:14)
[2021-08-29] MEDS: CEFTRIAXONE 1,000 MG in DEXTROSE 5% WATER 50 ML IV SCH (10:37)
[2021-08-29] MEDS: INSULIN GLARGINE 100 UNITS/ML SUBCUT SCH (10:38)
[2021-08-29 12:00] VITALS: BP 127/76
[2021-08-29 16:00] VITALS: BP 142/95
[2021-08-29 16:33] VITALS: BP 142/95
== END 2021-08-29 16:50 | disposition home health service (06) | DRG 871 ==
LOC: ER 15:20 → EDBEDREQSVC 17:55 → 5WST 20:44 → EDBEDREQSVC 20:58 → EDBEDREQTM 20:58 → EDBEDREQ 20:58 → ENRESERV 23:23 → 8WST 08-22 10:39
PROVIDERS: ADMIT Internal Medicine; ATTEND Internal Medicine
PROC: 05HY33Z Insertion of Infusion Device into Upper Vein, Percutaneous Approach (ICD-10-PCS; principal; 2021-08-29)
PROC: B54NZZA Ultrasonography of Left Upper Extremity Veins, Guidance (ICD-10-PCS; 2021-08-29)
DX: A41.01 Sepsis due to Methicillin susceptible Staphylococcus aureus (principal); N17.0 Acute kidney failure with tubular necrosis; L03.115 Cellulitis of right lower limb; E44.0 Moderate protein-calorie malnutrition; I13.0 Hypertensive heart and chronic kidney disease with heart failure and stage 1 through stage 4 chronic kidney disease, or unspecified chronic kidney disease; I50.22 Chronic systolic (congestive) heart failure; L97.519 Non-pressure chronic ulcer of other part of right foot with unspecified severity; E11.40 Type 2 diabetes mellitus with diabetic neuropathy, unspecified; E11.621 Type 2 diabetes mellitus with foot ulcer; E78.5 Hyperlipidemia, unspecified; M85.80 Other specified disorders of bone density and structure, unspecified site; D64.9 Anemia, unspecified; E11.22 Type 2 diabetes mellitus with diabetic chronic kidney disease; E11.51 Type 2 diabetes mellitus with diabetic peripheral angiopathy without gangrene; E87.5 Hyperkalemia; E87.8 Other disorders of electrolyte and fluid balance, not elsewhere classified; N18.9 Chronic kidney disease, unspecified; R74.01 Elevation of levels of liver transaminase levels; Z86.73 Personal history of transient ischemic attack (TIA), and cerebral infarction without residual deficits; Z89.512 Acquired absence of left leg below knee; Z99.3 Dependence on wheelchair; Z79.899 Other long term (current) drug therapy; Z79.84 Long term (current) use of oral hypoglycemic drugs; Z68.22 Body mass index [BMI] 22.0-22.9, adult; Z79.4 Long term (current) use of insulin
CPT/HCPCS: 36415; 73630; 76770; 76937; 80048; 80053; 80202; 82550; 82962; 83036; 83605; 84145; 84484; 85025; 87077; 87186; 93005; 93306; 93922; 93970; 97162; 99285; C1725; J0696; J1815; J2270; J2405; J2543; J3370; J7060

== ENCOUNTER 2021-09-04 13:29 | Inpatient (IN) | payer OTHER, MEDICAID ==
[~2021-09-04] VITALS: Ht 190.5 cm; Wt 74.4 kg
[2021-09-04 15:13] LABS: HEMATOCRIT. 37.4 % (42.0-52.0); HEMOGLOBIN. 12.3 g/dL (14.0-18.0); MEAN CORPUSCULAR VOLUME 91.4 fL (80.0-94.0); MEAN PLATELET VOLUME 8.2 fl (7.4-10.4); PLATELET 445 x1000/uL (130-400); RED BLOOD CELL COUNT 4.09 mill/uL (4.7-6.1); RED CELL DISTRIBUTION WIDTH 16.3 % (11.6-14.6)
[2021-09-04 15:22] LABS: CHLORIDE 111 mEq/L (98-107)
[2021-09-04] MEDS ORDERED: DEXTROSE 50% WATER 50ML SYRINGE IV ONE ×2 (16:00→16:02)
[2021-09-04 16:03] LABS: PLATELET ESTIMATE INCREASED
[2021-09-04] MEDS ORDERED: BUPIVACAINE HCL/PF 0.5% (5MG/ML) 30ML ONE (16:25)
[2021-09-04] MEDS ORDERED: POLYMYXIN B SULFATE 500000 UNITS/VIAL ONE (16:25)
[2021-09-04] MEDS ORDERED: VANCOMYCIN HCL 1 GM/VIAL ONE (16:25)
[2021-09-04] MEDS ORDERED: LIDOCAINE HCL 1% 10 MG/ML 10ML VIAL ONE (16:26)
[2021-09-04] MEDS ORDERED: DEXTROSE 50% WATER 50ML SYRINGE IV NR (17:15)
[2021-09-04] MEDS ORDERED: DEXTROSE 10% WATER 500 ML IV NR (17:15)
[2021-09-04] MEDS ORDERED: CEFTRIAXONE 1 G PREMIX 50 ML IV NR (20:00)
[2021-09-04 23:15] VITALS: BP 156/91
[2021-09-05] MEDS ORDERED: DEXTROSE 50% WATER 50ML SYRINGE IV PRN (00:30)
[2021-09-05] MEDS: PIPERACILLIN/TAZOBACTAM 3.375 G in DEXTROSE 5% WATER 50 ML IV SCH ×3 (03:51→22:50)
[2021-09-05 04:00] VITALS: BP 129/75
[2021-09-05] MEDS: INSULIN LISPRO 100 UNITS/ML SUBCUT SCH ×4 (06:03→22:48)
[2021-09-05] MEDS: BLOOD SUGAR DIAGNOSTIC STRIP TEST SCH ×4 (06:03→21:00)
[2021-09-05 08:00] VITALS: BP 141/83
[2021-09-05] MEDS: CARVEDILOL 6.25 MG TABLET PO SCH ×2 (09:00→16:58)
[2021-09-05] MEDS: AMLODIPINE 10MG TABLET PO SCH (09:00)
[2021-09-05] MEDS ORDERED: BUPIVACAINE HCL 0.5% (5MG/ML) 50ML ONE (09:19)
[2021-09-05] MEDS ORDERED: POLYMYXIN B SULFATE 500000 UNITS/VIAL ONE (09:21)
[2021-09-05] MEDS ORDERED: FENTANYL CITRATE/PF 50MCG/ML 2ML VIAL ONE (09:34)
[2021-09-05] MEDS ORDERED: PROPOFOL 200MG/20ML VIAL IV ONE (09:34)
[2021-09-05] MEDS ORDERED: MIDAZOLAM HCL 2 MG/2 ML VIAL ONE (09:35)
[2021-09-05] MEDS ORDERED: MEPERIDINE HCL/PF 25MG/ML CPJ IV PRN ×2 (10:00)
[2021-09-05] MEDS ORDERED: HYDROMORPHONE HCL/PF 2MG/ML CPJ IV PRN ×2 (10:00)
[2021-09-05] MEDS ORDERED: LABETALOL 5MG/ML SYR 20 MG/4 ML SYRINGE IV PRN ×2 (10:00)
[2021-09-05] MEDS ORDERED: ONDANSETRON HCL 4MG/2ML INJ IV PRN ×2 (10:00)
[2021-09-05] MEDS: INSULIN GLARGINE 100 UNITS/ML SUBCUT SCH ×2 (10:00→22:50)
[2021-09-05] MEDS ORDERED: DEXAMETHASONE 4MG/ML 1ML VIAL ONE (10:59)
[2021-09-05] MEDS ORDERED: ONDANSETRON HCL 4MG/2ML INJ ONE (11:00)
[2021-09-05] MEDS ORDERED: HYDROCODONE/ACETAMINOPHEN 5/325MG TABLET PO PRN (11:00)
[2021-09-05] MEDS ORDERED: NALOXONE HCL 0.4MG/ML VIAL IV PRN (11:15)
[2021-09-05 12:00] VITALS: BP 150/85
[2021-09-05] MEDS: GABAPENTIN 300MG CAPSULE PO SCH ×2 (13:24→16:57)
[2021-09-05] MEDS ORDERED: VANCOMYCIN 1500MG in DEXTROSE 5% WATER 250ML IV SCH (15:00)
[2021-09-05 16:00] VITALS: BP 159/85
[2021-09-05] MEDS ORDERED: VANCOMYCIN 1,000 MG in DEXT 5% WATER 250 ML IV SCH (16:00)
[2021-09-05 20:00] VITALS: BP 141/90
[2021-09-05] MEDS: ENOXAPARIN 30MG/0.3ML SYR SUBCUT SCH (22:46)
[2021-09-05] MEDS: AMITRIPTYLINE 25MG TABLET PO SCH (22:47)
[2021-09-06] VITALS: BP 127/89
[2021-09-06 04:00] VITALS: BP 129/81
[2021-09-06] MEDS: PIPERACILLIN/TAZOBACTAM 3.375 G in DEXTROSE 5% WATER 50 ML IV SCH ×3 (05:27→21:36)
[2021-09-06] MEDS: BLOOD SUGAR DIAGNOSTIC STRIP TEST SCH ×4 (06:41→21:42)
[2021-09-06] MEDS: INSULIN LISPRO 100 UNITS/ML SUBCUT SCH ×4 (07:17→21:00)
[2021-09-06 08:00] VITALS: BP 140/89
[2021-09-06] MEDS: INSULIN GLARGINE 100 UNITS/ML SUBCUT SCH (10:12)
[2021-09-06] MEDS: AMLODIPINE 10MG TABLET PO SCH (10:13)
[2021-09-06] MEDS: GABAPENTIN 300MG CAPSULE PO SCH ×3 (10:13→17:43)
[2021-09-06] MEDS: CARVEDILOL 6.25 MG TABLET PO SCH ×2 (10:14→17:44)
[2021-09-06 12:00] VITALS: BP 119/51
[2021-09-06 16:00] VITALS: BP 133/80
[2021-09-06 20:00] VITALS: BP 125/88
[2021-09-06] MEDS: AMITRIPTYLINE 25MG TABLET PO SCH (21:36)
[2021-09-06] MEDS: ENOXAPARIN 30MG/0.3ML SYR SUBCUT SCH (22:00)
[2021-09-07 00:01] VITALS: BP 129/86
[2021-09-07 03:58] VITALS: BP 114/62
[2021-09-07] MEDS: PIPERACILLIN/TAZOBACTAM 3.375 G in DEXTROSE 5% WATER 50 ML IV SCH ×3 (05:48→22:04)
[2021-09-07] MEDS: INSULIN LISPRO 100 UNITS/ML SUBCUT SCH ×4 (07:17→22:03)
[2021-09-07] MEDS: BLOOD SUGAR DIAGNOSTIC STRIP TEST SCH ×4 (07:17→21:00)
[2021-09-07 08:00] VITALS: BP 117/67
[2021-09-07] MEDS: CARVEDILOL 6.25 MG TABLET PO SCH ×2 (09:53→16:10)
[2021-09-07] MEDS: AMLODIPINE 10MG TABLET PO SCH (09:53)
[2021-09-07] MEDS: GABAPENTIN 300MG CAPSULE PO SCH ×3 (09:53→16:10)
[2021-09-07 12:00] VITALS: BP 107/59
[2021-09-07] MEDS ORDERED: VANCOMYCIN 1GM PMX (XELLIA) 200 ML IV SCH (12:00)
[2021-09-07 16:00] VITALS: BP 121/75
[2021-09-07 20:00] VITALS: BP 124/79
[2021-09-07] MEDS: AMITRIPTYLINE 25MG TABLET PO SCH (22:01)
[2021-09-07] MEDS: ENOXAPARIN 30MG/0.3ML SYR SUBCUT SCH (22:02)
[2021-09-08] VITALS: BP 147/94
[2021-09-08 04:00] VITALS: BP 127/78
[2021-09-08] MEDS: PIPERACILLIN/TAZOBACTAM 3.375 G in DEXTROSE 5% WATER 50 ML IV SCH ×3 (05:24→21:48)
[2021-09-08] MEDS: BLOOD SUGAR DIAGNOSTIC STRIP TEST SCH ×4 (06:27→20:51)
[2021-09-08] MEDS: INSULIN LISPRO 100 UNITS/ML SUBCUT SCH ×4 (06:27→20:51)
[2021-09-08 08:00] VITALS: BP 130/87
[2021-09-08] MEDS: GABAPENTIN 300MG CAPSULE PO SCH ×3 (08:45→16:51)
[2021-09-08] MEDS: AMLODIPINE 10MG TABLET PO SCH (08:46)
[2021-09-08] MEDS: CARVEDILOL 6.25 MG TABLET PO SCH ×2 (08:46→16:51)
[2021-09-08 12:00] VITALS: BP 115/66
[2021-09-08 15:51] VITALS: BP 114/66
[2021-09-08 20:00] VITALS: BP 122/78
[2021-09-08] MEDS: AMITRIPTYLINE 25MG TABLET PO SCH (20:50)
[2021-09-08] MEDS: ENOXAPARIN 30MG/0.3ML SYR SUBCUT SCH (20:51)
[2021-09-09] VITALS: BP 131/77
[2021-09-09 04:00] VITALS: BP 132/78
[2021-09-09] MEDS: PIPERACILLIN/TAZOBACTAM 3.375 G in DEXTROSE 5% WATER 50 ML IV SCH ×3 (05:29→21:15)
[2021-09-09] MEDS: BLOOD SUGAR DIAGNOSTIC STRIP TEST SCH ×4 (06:11→21:16)
[2021-09-09] MEDS: INSULIN LISPRO 100 UNITS/ML SUBCUT SCH ×4 (06:12→21:16)
[2021-09-09 08:00] VITALS: BP 139/72
[2021-09-09] MEDS: CARVEDILOL 6.25 MG TABLET PO SCH ×2 (08:19→17:37)
[2021-09-09] MEDS: GABAPENTIN 300MG CAPSULE PO SCH ×3 (08:19→17:36)
[2021-09-09] MEDS: AMLODIPINE 10MG TABLET PO SCH (08:20)
[2021-09-09 12:00] VITALS: BP 133/82
[2021-09-09] MEDS ORDERED: VANCOMYCIN 1.25GM PMX (XELLIA) 250 ML IV NR (14:00)
[2021-09-09 16:00] VITALS: BP 126/84
[2021-09-09 20:00] VITALS: BP 128/70
[2021-09-09] MEDS: AMITRIPTYLINE 25MG TABLET PO SCH (21:15)
[2021-09-09] MEDS: ENOXAPARIN 30MG/0.3ML SYR SUBCUT SCH (21:16)
[2021-09-10] VITALS: BP 126/76
[2021-09-10 04:00] VITALS: BP 124/84
[2021-09-10] MEDS: PIPERACILLIN/TAZOBACTAM 3.375 G in DEXTROSE 5% WATER 50 ML IV SCH ×2 (05:11→14:00)
[2021-09-10] MEDS: INSULIN LISPRO 100 UNITS/ML SUBCUT SCH ×2 (06:42→12:37)
[2021-09-10] MEDS: BLOOD SUGAR DIAGNOSTIC STRIP TEST SCH ×2 (06:42→12:20)
[2021-09-10 08:00] VITALS: BP 125/85
[2021-09-10] MEDS: GABAPENTIN 300MG CAPSULE PO SCH ×2 (08:44→12:37)
[2021-09-10] MEDS: AMLODIPINE 10MG TABLET PO SCH (08:45)
[2021-09-10] MEDS: CARVEDILOL 6.25 MG TABLET PO SCH (08:45)
[2021-09-10 12:00] VITALS: BP 134/74
[2021-09-10 14:39] VITALS: BP 134/74
== END 2021-09-10 16:40 | disposition home health service (06) | DRG 616 ==
LOC: ER 13:29 → 8WST 17:15 → EDBEDREQ 17:32 → EDBEDREQSVC 17:32 → ENRESERV 21:09
PROVIDERS: ADMIT Internal Medicine; ATTEND Internal Medicine
PROC: 0Y6V0Z0 Detachment at Right 4th Toe, Complete, Open Approach (ICD-10-PCS; principal; 2021-09-05)
PROC: 0J9Q0ZZ Drainage of Right Foot Subcutaneous Tissue and Fascia, Open Approach (ICD-10-PCS; 2021-09-05)
PROC: 0Y6M0ZF Detachment at Right Foot, Partial 5th Ray, Open Approach (ICD-10-PCS; 2021-09-05)
DX: E11.69 Type 2 diabetes mellitus with other specified complication (principal); E43 Unspecified severe protein-calorie malnutrition; L02.611 Cutaneous abscess of right foot; L03.115 Cellulitis of right lower limb; I13.0 Hypertensive heart and chronic kidney disease with heart failure and stage 1 through stage 4 chronic kidney disease, or unspecified chronic kidney disease; I42.9 Cardiomyopathy, unspecified; I50.22 Chronic systolic (congestive) heart failure; M86.8X7 Other osteomyelitis, ankle and foot; E11.52 Type 2 diabetes mellitus with diabetic peripheral angiopathy with gangrene; N17.9 Acute kidney failure, unspecified; E11.621 Type 2 diabetes mellitus with foot ulcer; L97.519 Non-pressure chronic ulcer of other part of right foot with unspecified severity; E11.40 Type 2 diabetes mellitus with diabetic neuropathy, unspecified; Z20.822 Contact with and (suspected) exposure to COVID-19; I11.0 Hypertensive heart disease with heart failure; I50.9 Heart failure, unspecified; D64.9 Anemia, unspecified; E11.22 Type 2 diabetes mellitus with diabetic chronic kidney disease; E11.649 Type 2 diabetes mellitus with hypoglycemia without coma; E87.8 Other disorders of electrolyte and fluid balance, not elsewhere classified; N18.9 Chronic kidney disease, unspecified; Z79.4 Long term (current) use of insulin; Z86.73 Personal history of transient ischemic attack (TIA), and cerebral infarction without residual deficits; Z89.512 Acquired absence of left leg below knee; Z79.899 Other long term (current) drug therapy; Z79.84 Long term (current) use of oral hypoglycemic drugs; Z68.20 Body mass index [BMI] 20.0-20.9, adult
CPT/HCPCS: 36415; 73630; 80048; 80053; 80202; 82962; 83036; 84145; 85025; 85651; 87070; 87075; 87077; 87186; 87426; 88304; 88311; 97162; 97166; 99291; J0696; J1100; J1650; J1815; J2250; J2405; J2543; J2704; J3010; J3370; J3490; J7060

== ENCOUNTER 2021-12-06 10:42 | Inpatient (IN) | payer OTHER, MEDICAID ==
[~2021-12-06] VITALS: Ht 190.5 cm; Wt 85.7 kg
[2021-12-06] MEDS ORDERED: IOHEXOL-350 100 ML BOTTLE ONE (11:14)
[2021-12-06] MEDS ORDERED: DEXTROSE 50% WATER 50ML SYRINGE IV ONE (11:45)
[2021-12-06] MEDS ORDERED: DEXTROSE 50% WATER 50ML SYRINGE IV NR (11:45)
[2021-12-06 11:52] LABS: CHLORIDE 105 mEq/L (98-107)
[2021-12-06 12:00] LABS: ETHANOL BLOOD < 10 mg/dL
[2021-12-06] MEDS ORDERED: ASPIRIN 325MG EC TABLET PO NR (12:25)
[2021-12-06] MEDS ORDERED: ASPIRIN 325MG EC TABLET PO ONE (12:45)
[2021-12-06 14:00] LABS: CLARITY URINE CLEAR (CLEAR); COLOR URINE YELLOW (YELLOW); KETONES URINE NEGATIVE (NEGATIVE); LEUKOCYTE ESTERASE URINE NEGATIVE (NEGATIVE); NITRITE URINE NEGATIVE (NEGATIVE); OCCULT BLOOD URINE TRACE (NEGATIVE); PROTEIN URINE 2+ (NEGATIVE); SPECIFIC GRAVITY URINE 1.013 (1.005-1.030)
[2021-12-06 14:33] LABS: *AMPHETAMINES SCREEN URINE NEGATIVE (NEGATIVE); *BARBITURATES SCREEN URINE NEGATIVE (NEGATIVE); *BENZODIAZEPINES SCREEN URINE PRESUMTIVE POSITIVE (NEGATIVE); *COCAINE SCREEN URINE NEGATIVE (NEGATIVE); CANNABINOID URINE SCREEN NEGATIVE (NEGATIVE); METHADONE URINE SCREEN NEGATIVE (NEGATIVE); OPIATES URINE SCREEN NEGATIVE (NEGATIVE); PHENCYCLIDINE URINE SCREEN NEGATIVE (NEGATIVE)
[2021-12-06 14:36] LABS: BASOPHILS % 0.6 % (0.0-2.0); EOSINOPHILS % 0.9 % (0.0-5.0); HEMOGLOBIN. 12.5 g/dL (14.0-18.0); LYMPHOCYTES % 14.5 % (20.0-50.0); MEAN CORPUSCULAR HEMOGLOBIN 30.2 pg (28.0-32.0); MEAN CORPUSCULAR VOLUME 91.9 fL (80.0-94.0); MEAN PLATELET VOLUME 8.6 fl (7.4-10.4); MONOCYTES % 7.5 % (2.0-8.0); NEUTROPHILS % 76.5 % (40.0-76.0); PLATELET 215 x1000/uL (130-400); RED BLOOD CELL COUNT 4.14 mill/uL (4.7-6.1); RED CELL DISTRIBUTION WIDTH 18.6 % (11.6-14.6)
[2021-12-06] MEDS ORDERED: CLONIDINE 0.1MG TABLET PO PRN (17:15)
[2021-12-06] MEDS ORDERED: ACETAMINOPHEN 325MG TABLET PO PRN (17:15)
[2021-12-06] MEDS ORDERED: ONDANSETRON HCL 4MG/2ML INJ IV PRN (17:15)
[2021-12-06] MEDS: GABAPENTIN 300MG CAPSULE PO SCH (17:30)
[2021-12-06 18:43] VITALS: BP 147/85
[2021-12-06] MEDS ORDERED: DEXTROSE 50% WATER 50ML SYRINGE IV PRN (19:00)
[2021-12-06 20:00] VITALS: BP 154/104
[2021-12-06] MEDS ORDERED: AMITRIPTYLINE 25MG TABLET PO SCH (21:00)
[2021-12-06] MEDS ORDERED: ATORVASTATIN CALCIUM 40MG TABLET PO SCH (21:00)
[2021-12-06] MEDS: BLOOD SUGAR DIAGNOSTIC STRIP TEST SCH (21:33)
[2021-12-06] MEDS: CLOPIDOGREL 75MG TABLET PO SCH (21:35)
[2021-12-06] MEDS: CARVEDILOL 6.25 MG TABLET PO SCH (21:35)
[2021-12-06] MEDS: ENOXAPARIN 30MG/0.3ML SYR SUBCUT SCH (21:35)
[2021-12-06] MEDS: INSULIN LISPRO 100 UNITS/ML SUBCUT SCH (21:36)
[2021-12-06] MEDS ORDERED: INSULIN GLARGINE 100 UNITS/ML SUBCUT SCH (22:00)
[2021-12-07] VITALS: BP 124/84
[2021-12-07 00:42] LABS: CREATINE KINASE MB FRACTION 6.7 ng/mL (0.5-3.6)
[2021-12-07 04:00] VITALS: BP 121/83
[2021-12-07] MEDS: BLOOD SUGAR DIAGNOSTIC STRIP TEST SCH ×3 (06:08→17:20)
[2021-12-07] MEDS: INSULIN LISPRO 100 UNITS/ML SUBCUT SCH ×3 (07:50→17:50)
[2021-12-07 08:00] VITALS: BP 118/75
[2021-12-07 08:16] LABS: BASOPHILS % 1.1 % (0.0-2.0); EOSINOPHILS % 3.9 % (0.0-5.0); HEMATOCRIT. 38.4 % (42.0-52.0); HEMOGLOBIN. 12.7 g/dL (14.0-18.0); LYMPHOCYTES % 20.6 % (20.0-50.0); MEAN CORPUSCULAR HEMOGLOBIN 30.2 pg (28.0-32.0); MEAN CORPUSCULAR VOLUME 91.3 fL (80.0-94.0); MEAN PLATELET VOLUME 8.7 fl (7.4-10.4); NEUTROPHILS % 64.4 % (40.0-76.0); PLATELET 242 x1000/uL (130-400); RED BLOOD CELL COUNT 4.21 mill/uL (4.7-6.1); RED CELL DISTRIBUTION WIDTH 18.7 % (11.6-14.6)
[2021-12-07] MEDS ORDERED: AMLODIPINE 10MG TABLET PO SCH (09:00)
[2021-12-07] MEDS ORDERED: FUROSEMIDE 40MG TABLET PO SCH (09:00)
[2021-12-07 09:19] LABS: CREATINE KINASE MB FRACTION 6.1 ng/mL (0.5-3.6)
[2021-12-07] MEDS: CLOPIDOGREL 75MG TABLET PO SCH (10:41)
[2021-12-07] MEDS: GABAPENTIN 300MG CAPSULE PO SCH ×2 (10:41→19:10)
[2021-12-07] MEDS: CARVEDILOL 6.25 MG TABLET PO SCH (10:41)
[2021-12-07] MEDS ORDERED: CLOP-31 MT (15:04)
[2021-12-07] MEDS ORDERED: ASPI-1406 MT (15:05)
[2021-12-07] MEDS: ENOXAPARIN 30MG/0.3ML SYR SUBCUT SCH (19:11)
[2021-12-07 19:14] VITALS: BP 132/85
[2021-12-07 19:15] VITALS: BP 132/85
[2021-12-07 20:00] VITALS: BP 123/81
== END 2021-12-07 21:20 | disposition home or self-care (01) | DRG 69 ==
LOC: ER 10:42 → 6WST 14:19 → EDBEDREQ 14:25 → EDBEDREQSVC 14:25 → ENRESERV 15:48
PROVIDERS: ADMIT Internal Medicine; ATTEND Internal Medicine
DX: G45.9 Transient cerebral ischemic attack, unspecified (principal); I13.0 Hypertensive heart and chronic kidney disease with heart failure and stage 1 through stage 4 chronic kidney disease, or unspecified chronic kidney disease; I69.354 Hemiplegia and hemiparesis following cerebral infarction affecting left non-dominant side; E11.22 Type 2 diabetes mellitus with diabetic chronic kidney disease; N18.9 Chronic kidney disease, unspecified; E11.40 Type 2 diabetes mellitus with diabetic neuropathy, unspecified; E78.5 Hyperlipidemia, unspecified; E11.51 Type 2 diabetes mellitus with diabetic peripheral angiopathy without gangrene; I50.9 Heart failure, unspecified; Z79.899 Other long term (current) drug therapy; Z89.512 Acquired absence of left leg below knee
CPT/HCPCS: 36415; 70496; 70498; 70551; 71045; 80048; 80053; 80061; 80305; 80320; 81003; 82550; 82553; 82962; 84484; 85025; 93005; 99285; J1650; J1815; Q9967; G0480